=== PATIENT | female | born 1965 | race Two or more races ===

== ENCOUNTER 2024-10-03 11:52 | Emergency (ER) | payer MEDICARE, MEDICAID, SELFPAY ==
--- NOTE | 2024-10-03 12:12 | EDNOTE_ITS ---
ED General RME/HPI General Chief complaint: Weakness Stated complaint: AMS Time Seen by Provider: 10/03/24 12:10 Arrival date/time: 10/03/24 11:52 CC: Altered mental status HPI patient is a Down syndrome presenting to the ER via EMS report and family noting that she has GCS now of 11 onset at 11 AM this morning. EMS report the patient is not warm to touch has stable vital signs including no tachycardia or tachypnea. Family was worried about a stroke which the patient had had 8 years ago however the patient is awake alert jerking his hand away from us when we tried to do an assessment. Informal reports that the patient had had a psychiatric medication doubled recently. Family are not at bedside at this time. Mother at bedside presents the medication trazodone and it has been increased from 50 to 100 mg on . Related Data Home Medications ?Medication ?Instructions ?Recorded ?Confirmed atorvastatin 20 mg tablet 20 mg PO QDAY 04/25/2104/25 Previous Rx's ?Medication ?Instructions ?Recorded dicyclomine 10 mg capsule 10 mg PO TID PRN abdominal 0 05/28/21 discomfort #20 caps ondansetron HCl 4 mg tablet 4 mg PO Q8H PRN nausea and 05/28/21 (Zofran) vomiting #20 tabs simethicone 125 mg chewable tablet 125 mg PO TID PRN a bdominal 05/28/21 (Gas Relief (simethicone)) distention #20 tabs ciprofloxacin HCl 500 mg tablet 500 mg PO Q12H #14 tab s 06/15/21 (Cipro) dicyclomine 20 mg tablet 20 mg PO QID PRN abdominal p ain 06/15/21 #30 tabs metronidazole 500 mg tablet 500 mg PO TID #21 tabs Allergies Allergy/AdvReac Type Severity Reaction Status Date / Time No Known Allergies Allergy Verified 06/14/21 20:46 Review of Systems Review of Systems ROS Unobtainable: unobtainable due to mental status Past Medical History Past Medical History CARDIAC: Negative Cardiac Disorders or Congestive Heart Failure RESPIRATORY: Negative Chronic Obstructive Pulmonary Disease (COPD) or Asthma GENITOURINARY: Negative Renal Disease ENDOCRINE: Negative Diabetes Mellitus Type 1 or Diabetes Mellitus Type 2 HEMATOLOGIC: Negative Sickle Cell Disease OTHER HISTORY: Positive Developmental Delay; Negative Blood Transfusions Social History SMOKING STATUS: Never smoker ED Exam Narrative Physical exam: [General: Obese appears not in any acute distress Head normocephalic HEENT: Within acceptable limits Neck is supple nontender Chest equal chest rise nontender to palpation Respiratory: Clear to auscultation no wheezes crackles or rubs CV: Rate rhythm is regular no murmurs rubs or clicks Abdomen is distended secondary to body habitus soft nontender no masses positive bowel sounds all 4 quadrants Back: No CVA tenderness no spinous process tenderness from cervical spine thoracic and lumbar spine Skin: Intact no petechiae rash induration ulceration or crepitus Extremities: Moving all extremity against resistance cap refill less than 2 seconds neurosensory intact Neuro: Awake alert no focal deficits] Course Course Course Narrative: I suspect the abnormal behavior is a doubling of the trazodone by the primary care provider 3 days ago. Patient be discharged home Quality Measures none Orders Category Date Time Status EKG (ED ONLY) *Do not use* NOW Care 10/03/24 12:11 Active EKG (ED Only) Stat Exams 10/03/24 12:11 Ordered CBC Stat Lab 10/03/24 12:36 Completed Comprehensive Metabolic Panel Stat Lab 10/03/24 12:36 Completed Drug Screen,Urine Stat Lab 10/03/24 14:01 Completed LDH (Lactate Dehydrogenase) Stat Lab 10/03/24 12:36 Completed Magnesium Stat Lab 10/03/24 12:36 Completed Partial Thromboplastin Time Stat Lab 10/03/24 12:36 Completed Prothrombin Time with INR Stat Lab 10/03/24 12:36 Completed Urinalysis Stat Lab 10/03/24 14:01 Received Vital Signs Vital signs: Vital Signs Temperature 98 F 10/03/24 12:20 Pulse Rate 76 10/03/24 12:20 Respiratory Rate 18 10/03/24 12:20 Blood Pressure 151/92 H 10/03/24 12:20 Pulse Oximetry (%) 98 10/03/24 12:20 Oxygen Delivery Method Room Air 10/03/24 12:20 Discharge Plan Plan Patient Disposition: HOME (Self Care) Patient condition on transfer: Stable Prescriptions/Referrals Prescriptions/Med Rec: No Action dicyclomine 10 mg capsule 10 mg PO TID PRN (Reason: abdominal discomfort) Qty: 20 0RF ondansetron HCl [Zofran] 4 mg tablet 4 mg PO Q8H PRN (Reason: nausea and vomiting) Qty: 20 0RF simethicone [Gas Relief (simethicone)] 125 mg tablet,chewable 125 mg PO TID PRN (Reason: abdominal distention) Qty: 20 0RF atorvastatin 20 mg tablet 20 mg PO QDAY metronidazole 500 mg tablet 500 mg PO TID Qty: 21 0RF ciprofloxacin HCl [Cipro] 500 mg tablet 500 mg PO Q12H Qty: 14 0RF Rx Instructions: administer dose at least 2 hrs before/6 hrs after dairy products, calcium, zinc, and/or iron-containing products dicyclomine 20 mg tablet 20 mg PO QID PRN (Reason: abdominal pain) Qty: 30 0RF Referrals: Neal Carpio MD [Primary Care Provider] - In 1 week Problem List Clinical Impression: Altered mental status Patient/Caregiver Discharge Instructions Education Materials: ED Confusion Additional Instructions: I suspect that is the trazodone, please follow-up with your primary care provider Print Language: Luxembourger Stand Alone Forms: Yessica Award Info., Work/School Release, Patient Portal Info Letter PA/[employer] Supervising Physician [employer] Supervising Physician: Nain Gonzalez ENP [facility] Clinical Information Provided by: patient and EMS Medical Records reviewed EMS Labs Lab(s) Interpretation(s): CBC shows no acute leukocytosis anemia thrombocytopenia Coags within acceptable limits CMP shows a sodium 146 no other significant electrolyte imbalances no renal impairment transaminitis or T. bili elevation. UDS is negative
[2024-10-03 12:20] VITALS: BP 151/92; PULSE 75; PULSE 76; RESP 18; TEMP 36.6; O2SAT 98; O2SAT 99; BMI 33.6
[2024-10-03 12:57] LABS: Basophils # (Auto) 0.1 Thou/mm3 (0.0-0.2); Basophils % (Auto) 1 % (0-2.5); Eosinophils # (Auto) 0.1 Thou/mm3 (0.0-0.5); Eosinophils % (Auto) 1 % (0-10); Hematocrit 43.7 % (36.0-46.0); Immature Granulocytes % (Auto) 0 % (0-0); Immature Granulocytes Auto 0.01 Thou/mm3 (0.00-0.00); Lymphocytes # (Auto) 2.9 Thou/mm3 (1.0-4.8); Lymphocytes % (Auto) 53 % (10-50); Mean Corpuscular HGB Conc 34.3 g/dl (31.0-37.0); Mean Corpuscular Hemoglobin 34.3 pg (25.0-35.0); Mean Corpuscular Volume 100 fL (80-100); Monocytes # (Auto) 0.4 Thou/mm3 (0.0-0.8); Monocytes % (Auto) 7 % (0-12); Neutrophils # (Auto) 2.1 Thou/mm3 (1.8-7.7); Neutrophils % (Auto) 38 % (37-80); Nucleated Red Blood Cell % 0 /100 WBC (0); Platelet Count 187 Thou/mm3 (140-440); RDW Standard Deviation 51.2 fL (36.4-46.3); Red Blood Count 4.37 Miln/mm3 (4.00-5.20); White Blood Count 5.4 Thou/mm3 (3.6-11.0)
[2024-10-03 13:03] LABS: Alanine Aminotransferase 23 U/L (10-49); Albumin, Serum 4.2 gm/dL (3.5-5.0); Albumin/Globulin Ratio 1.6 (1.2-2.2); Alkaline Phosphatase 74 U/L (46-116); Anion Gap 9 (7-16); Aspartate Amino Transferase 21 U/L (0-34); BUN/Creatinine Ratio 13 Ratio (12-20); Bilirubin,Total 0.9 mg/dL (0.3-1.2); Blood Urea Nitrogen 14 mg/dL (9-23); Calcium 9.1 mg/dL (8.3-10.6); Calcium (Corrected) 9.1 mg/dL (8.5-10.1); Carbon Dioxide 30.9 mMol/L (20.0-31.0); Chloride 106 mMol/L (98-107); Creatinine (Component) 1.1 mg/dL (0.6-1.3); Estimated Creatinine Clearance 43.8 mL/min (>60); Globulin 2.7 gm/dL (2.3-3.5); Glucose 111 mg/dL (74-106); LDH (Lactate Dehydrogenase) 173 U/L (120-246); Magnesium 2.2 mg/dL (1.6-2.6); Osmolality,Calculated 292 (275-295); Potassium 4.8 mMol/L (3.4-5.1); Sodium 146 mMol/L (136-145); Total Protein 6.9 gm/dL (5.7-8.2); eGFR 58 See Note
[2024-10-03 13:04] LABS: Partial Thromboplastin Time 25.9 Seconds (22.0-36.0); Prothrombin Time 11.1 Seconds (9.0-12.2)
[2024-10-03 14:26] LABS: Collection Type, Urine Clean Catch; RBC,Urine 0 /hpf (0-3); WBC,Urine 0 /hpf (0-5)
[2024-10-03 14:53] LABS: Amphetamine/Methamp Scrn,U Negative (Negative); Barbiturate Screen,Urine Negative (Negative); Benzodiazepines Screen,Urine Negative (Negative); Benzoylecgonine Screen, Ur Negative (Negative); Fentanyl Screen,Urine Negative (Negative); Opiate Screen,Urine Negative (Negative); THC Screen,Urine Negative (Negative)
[2024-10-03 15:09] LABS: Bacteria,Urine 1+; Bilirubin,Urine Negative (Negative); Blood,Urine Negative (Negative); Clarity,Urine Clear (Clear/Hazy); Color,Urine Colorless (Lt Yel-Yel); Glucose, Urine Negative (Negative); Ketones,Urine Negative (Negative); Leukocyte Esterase,Urine Negative (Negative); Nitrite,Urine Negative (Negative); PH,Urine 7.5 (5.0-7.0); Protein,Urine Negative (Neg - Trace); Specific Gravity,Urine 1.005 (1.001-1.035); Squamous Epithelial Cell,Urine 3 /hpf (0-5); Urobilinogen,Urine Negative mg/dL (0.0-1.0)
[2024-10-03 15:34] VITALS: BP 155/81; PULSE 71; RESP 16; TEMP 36.5; O2SAT 100
== END 2024-10-03 15:34 | disposition home or self-care (01) ==
PROVIDERS: Registered Nurse General Practice; Emergency Provider Family Medicine; PCP Student in an Organized Health Care Education/Training Program
DX: R41.82 Altered mental status, unspecified (principal); R53.1 Weakness; Q90.9 Down syndrome, unspecified; Z86.73 Personal history of transient ischemic attack (TIA), and cerebral infarction without residual deficits
CPT/HCPCS: 36415; 80053; 80307; 81001; 83615; 83735; 85025; 85610; 85730; 93005; 99283